=== PATIENT | male | born 1980 | race Caucasian/White ===

== ENCOUNTER 2017-10-16 17:50 | Emergency (ER) | payer MEDICARE, MEDICAID ==
[2017-10-16] MEDS ORDERED: METO-247 PO (18:22)
[2017-10-16] MEDS ORDERED: LITH300T3 PO (18:22)
[2017-10-16] MEDS ORDERED: ARIP20TA5 PO (18:22)
[2017-10-16] MEDS ORDERED: LITH600C PO (18:22)
--- NOTE | 2017-10-16 18:24 | PHYS DOC ---
General Chief Complaint: MEDICATION REFILL Stated Complaint: MEDICATION REFILL Time Seen by MD: 18:06 Source: patient Exam Limitations: no limitations Problems: History of Present Illness Initial Comments Patient is a 37-year-old male who comes to the ED requesting medication refills. Patient states that he is visiting his sister locally, he lives in [facility]. He states that he forgot to bring his medications with him and hasn't taken any for the past 4 days. He lists his medications as: Abilify 20 mg daily , lithium 600 mg a.m., 900 mg p.m., lisinopril 20 mg daily, Toprol 100 mg daily. He says he is feeling very anxious with mood instability. When asked he says he is not sure when he'll be going back to [place]. Due to the RN report that the patient was expressing violent tendencies I clarified this with the patient. He says that there is loss of arguing at his sister's home but he does feel safe, denies any suicidal or homicidal ideation or current hallucinations he just feels as if he is going to jump out of his skin. His vital signs are stable. Timing/Duration: other (past few days) Severity: moderate Modifying Factors: improves with medication Associated Symptoms: other Allergies: Uncoded Allergies: pt states he has multiple allergies but can not list them (Allergy, Unknown , 10/16/17) Past Medical History Medical History: hypertension Surgical History: noncontributory Psychosocial History: bipolar, schizophrenia Social History Smoker: non-smoker Alcohol: occasionally Drugs: none Review of Systems Constitutional: denies chills, denies diaphoresis, denies fever Respiratory: denies cough, denies shortness of breath Cardiovascular: denies chest pain, denies palpitations Gastrointestinal: denies diarrhea, denies nausea, denies vomiting Musculoskeletal: denies back pain, denies joint swelling, denies neck pain Psychiatric/Neurological: see HPI Physical Exam General Appearance: mild distress (anxious), obese Ear, Nose, Throat: hearing grossly normal, normal ENT inspection Neck: full range of motion, supple Respiratory: normal breath sounds, no respiratory distress Cardiovascular: normal peripheral pulses, regular rate, rhythm Back: no CVA tenderness, no vertebral tenderness Extremities: normal range of motion, pelvis stable Neurologic/Psychiatric: no motor/sensory deficits, alert, oriented x 3, other ( mildly agitated and anxious, denies hallucinations, suicidal or homicidal ideation) Orders, Labs, Meds I discussed prescription refills and future planning, ensuring he has his medications with him and obtaining refills and advance. I discussed the need to remain compliant with his medications. Due to a possible medication interaction and the stability of the patient's blood pressure in the emergency department I did refused to refill the lisinopril. 5 days of medication refills provided which according to the patient will be sufficient. No new or progressive symptoms throughout the ED course. Signs and symptoms to monitor as well as indications for urgent return to the department were discussed. The patient's questions were answered to his satisfaction and he expressed agreement and understanding with the treatment plan. Departure Time of Disposition: 18:22 Disposition: 01 HOME, SELF-CARE Diagnosis: Med Refill, Bipolar Disorder, Hypertension Condition: STABLE Patient Instructions: Medication Refill, Emergency Department Additional Instructions: Please review the patient education materials. In the future ensure you have your medications with you before travelling. Follow up with your doctor next week. Return to ED with new or changing symptoms. SRINIVASA LARIOS DO Oct 16, 2017 18:24
[2017-10-16] MEDS ORDERED: LITHIUM CARBONATE 300 MG TABLET PO ONE (18:30)
[2017-10-16] MEDS ORDERED: ARIPiprazole 10 MG TABLET PO ONE (18:30)
[2017-10-16] MEDS ORDERED: METOPROLOL SUCC 24HR ER 25 MG TAB.ER.24H. PO ONE (18:30)
[2017-10-16 18:45] VITALS: BP 136/68
== END 2017-10-16 18:46 | disposition home or self-care (01) ==
LOC: ER 17:50
DX: Z76.0 Encounter for issue of repeat prescription (principal); F31.9 Bipolar disorder, unspecified; I10 Essential (primary) hypertension; F20.9 Schizophrenia, unspecified
CPT/HCPCS: 99283

== ENCOUNTER 2017-12-17 13:58 | Emergency (ER) | payer MEDICARE, MEDICAID ==
[~2017-12-17 13:58] MED LIST: ARIP20TA5 PO; LITH300T3 PO; LITH600C PO; METO-247 PO
--- NOTE | 2017-12-17 14:00 | PHYS DOC ---
Past History Past Medical History: Bipolar, Schizophrenia, Other Past Surgical History: Appendectomy, Other Alcohol Use: Occasionally Drug Use: None Adult General Chief Complaint Chief Complaint: medication refill HPI HPI Patient is a 37 year old male who presents with the medication refill. He states he's been out of his meds for about the last 20-30 days. He states he has a history of bipolar and schizophrenia in a stroke at . He states he is on lithium, metoprolol, Abilify. States he was hospitalized and got out about 20 days is been out of those medications since then. He denies any nausea vomiting or headache. He denies homicidal suicidal ideations. He states he like to have his medications refilled and states he's filed for [place] Medicaid but it hasn't gone through yet. He states he does not have a primary care physician. States he lives next to the [facility] but has not been there as of yet. Review of Systems Review of Systems Constitutional: Denies fever or chills [] Eyes: Denies change in visual acuity, redness, or eye pain [] HENT: Denies nasal congestion or sore throat [] Respiratory: Denies cough or shortness of breath [] Cardiovascular: No additional information not addressed in HPI [] GI: Denies abdominal pain, nausea, vomiting, bloody stools or diarrhea [] : Denies dysuria or hematuria [] Musculoskeletal: Denies back pain or joint pain [] Integument: Denies rash or skin lesions [] Neurologic: Denies headache, focal weakness or sensory changes [] Endocrine: Denies polyuria or polydipsia [] All other systems were reviewed and found to be within normal limits, except as documented in this note. Allergies Allergies Allergies Uncoded Allergies Type Severity Reaction Last Updated Verified pt states he has multiple allergies but can not list them Allergy Unknown Physical Exam Physical Exam Constitutional: Well developed, well nourished, no acute distress, non-toxic appearance. [] HENT: Normocephalic, atraumatic, bilateral external ears normal, oropharynx moist, no oral exudates, nose normal. [] Eyes: PERRLA, EOMI, conjunctiva normal, no discharge. [] Neck: Normal range of motion, no tenderness, supple, no stridor. [] Cardiovascular:Heart rate regular rhythm, no murmur [] Lungs & Thorax: Bilateral breath sounds clear to auscultation [] Abdomen: Bowel sounds normal, soft, no tenderness, no masses, no pulsatile masses. [] Skin: Warm, dry, no erythema, no rash. [] Back: No tenderness, no CVA tenderness. [] Extremities: No tenderness, no cyanosis, no clubbing, ROM intact, no edema. [] Neurologic: Alert and oriented X 3, normal motor function, normal sensory function, no focal deficits noted. [] Psychologic: Affect normal, judgement normal, mood normal. [] EKG EKG [] Radiology/Procedures Radiology/Procedures [] Impressions: Schizophrenia Bipolar Hypertension Course & Med Decision Making Course & Med Decision Making Pertinent Labs and Imaging studies reviewed. (See chart for details) His blood pressures recorded as 136 systolic. He does not have any SI or HI. I spoke the guidance Center who states that they do take assessments between the hours of 9 and 2 any come tomorrow and then takes approximately 15-30 days from the [facility] with a closing coordinator after the initial assessment. At this time I will give him a prescription for 15 mg by mouth daily of Abilify 14 days and he is to follow-up with the guidance Center. I will hold off on anti- pretensive ageist this time as his blood pressures relatively normal. He is not suicidal or homicidal. He is agreeable Plan [facility] discharged in stable condition. Dragon Disclaimer Dragon Disclaimer This electronic medical record was generated, in whole or in part, using a voice recognition dictation system. Departure Departure: Impression: Primary Impression: Schizophrenia Disposition: 01 HOME, SELF-CARE Condition: STABLE Referrals: NON,STAFF (PCP) Patient Instructions: Medication Refill, Emergency Department, Schizophrenia Additional Instructions: I spoke with the guidance Center states they can see her tomorrow between the hours of 9 AM and 2 PM. Tomorrow you will have an assessment completed I'm not sure how long this will take. Then he will come back to meet with the treatment provider. He said he usually takes 2-4 weeks for this next appointment. I have given your prescription for 2 weeks' worth of Abilify. This should cover you to you can see a treatment provider. At that point they can determine if you need to be restarted on your lithium. You will need to keep track of your blood pressure as if not that elevated at this time. You can go by [facility] or other pharmacies and they have of free blood pressure cuff machine read can obtain her blood pressure. If you develop troubles breathing, headaches, severe chest pain or other concerns please return back to the emergency department or see her primary care provider. We will provide you will list of the primary care providers around [facility] that you can call to get an appointment with. Scripts Aripiprazole (ABILIFY) 15 Mg Tablet 1 TAB PO DAILY, #14 TAB Prov: SELAM LOPEZ MD 12/17/17 Problem Qualifiers Primary Impression: Schizophrenia Schizophrenia type: other Qualified Codes: F20.89 - Other schizophrenia SELAM LOPEZ MD Dec 17, 2017 14:00
[2017-12-17] MEDS ORDERED: ARIP15TA36 PO (14:38)
[2017-12-17 14:43] VITALS: BP 124/87
== END 2017-12-17 14:43 | disposition home or self-care (01) ==
LOC: ER 13:58
DX: F20.9 Schizophrenia, unspecified (principal); Z76.0 Encounter for issue of repeat prescription; F31.9 Bipolar disorder, unspecified; I10 Essential (primary) hypertension; Z86.73 Personal history of transient ischemic attack (TIA), and cerebral infarction without residual deficits
CPT/HCPCS: 99284